=== PATIENT | female | born 1975 | race Caucasian/White ===

== ENCOUNTER 2017-06-13 00:17 | Emergency (ER) | payer OTHER ==
[2017-06-13] MEDS ORDERED: APAP/OXYCODONE 325/5 TAB PO ONE (00:19)
[2017-06-13] MEDS ORDERED: APAP/OXYCODONE 325/5 TAB ONE (00:20)
[2017-06-13] MEDS ORDERED: HYDROMORPHONE HCL 2 MG/ML SOL IV ONE (01:09)
[2017-06-13] MEDS ORDERED: HYDROMORPHONE HCL 2 MG/ML SOL ONE (01:20)
[2017-06-13 01:42] VITALS: RESP 20
[2017-06-13 02:31] VITALS: TEMP 98.8
[2017-06-13 02:39] VITALS: BP 123/78; PULSE 99; O2SAT 99
== END 2017-06-13 01:30 | disposition short-term general hospital (02) ==
LOC: ED 00:17
DX: S82.892A Other fracture of left lower leg, initial encounter for closed fracture (principal); W00.0XXA Fall on same level due to ice and snow, initial encounter; R40.2362 Coma scale, best motor response, obeys commands, at arrival to emergency department; R40.2142 Coma scale, eyes open, spontaneous, at arrival to emergency department; R40.2252 Coma scale, best verbal response, oriented, at arrival to emergency department
CPT/HCPCS: 73600; 99284; J1170; A9270-GY